=== PATIENT | male | born 1980 | race Caucasian/White ===

== ENCOUNTER 2022-10-24 12:53 | Emergency (ER) | payer SELFPAY ==
[2022-10-24] MEDS ORDERED: Lidocaine 1% 10 ML MDV INJECT ONE (12:56)
[2022-10-24] MEDS ORDERED: Diphtheria,Pertussis(Acell),Tetanus Vaccine 0.5 ML Syringe IM ONE (13:15)
== END 2022-10-24 13:23 | disposition home or self-care (01) ==
LOC: VM.ED 12:53
DX: S60.352A Superficial foreign body of left thumb, initial encounter (principal); W45.8XXA Other foreign body or object entering through skin, initial encounter
CPT/HCPCS: 99283

== ENCOUNTER 2024-11-13 16:40 | Emergency (ER) | payer OTHER ==
[2024-11-13] MEDS: Lidocaine 1% with EPINEPHrine 1:100,000 20 ML MDV INFILT PRN (17:06)
== END 2024-11-13 17:40 | disposition home or self-care (01) ==
LOC: VM.ED 16:40
DX: S81.812A Laceration without foreign body, left lower leg, initial encounter (principal); Y30.XXXA Falling, jumping or pushed from a high place, undetermined intent, initial encounter
CPT/HCPCS: 12004; 99282; J2004